=== PATIENT | female | born 1995 | race Caucasian/White ===

== ENCOUNTER 2016-11-20 15:14 | Emergency (ER) | payer OTHER ==
[~2016-11-20] VITALS: Ht 170.2 cm; Wt 65.3 kg
[2016-11-20 16:11] LABS: MEAN CORPUSCULAR VOLUME 90.8 fl (80.0-96.0); RED CELL DISTRIBUTION WIDTH 12.2 % (11.5-14.5); WHITE BLOOD COUNT 8.7 K/mm3 (4.0-10.0)
[2016-11-20 16:23] LABS: CONTROL LINE HCG INT CTR LINE PRESENT
[2016-11-20 16:39] LABS: ALBUMIN 4.3 GM/DL (3.2-5.2); ALBUMIN/GLOBULIN RATIO 1.19 (1.00-1.93); ALKALINE PHOSPHATASE 73 U/L (45-117); ALT/SGPT 21 U/L (12-78); ANION GAP 8 MEQ/L (8-16); AST/SGOT 15 U/L (15-37); BILIRUBIN,DIRECT 0.1 MG/DL (0.0-0.2); BILIRUBIN,TOTAL 0.4 MG/DL (0.2-1.0); BLOOD UREA NITROGEN 11 MG/DL (7-18); CALCIUM LEVEL 8.6 MG/DL (8.5-10.1); CARBON DIOXIDE LEVEL 26 MEQ/L (21-32); CHLORIDE LEVEL 106 MEQ/L (98-107); CREATININE FOR GFR 0.74 MG/DL (0.55-1.02); GLUCOSE, FASTING 71 MG/DL (70-105); POTASSIUM SERUM 3.8 MEQ/L (3.5-5.1); SODIUM LEVEL 140 MEQ/L (136-145); TOTAL PROTEIN 7.9 GM/DL (6.4-8.2)
[2016-11-20 18:02] LABS: METHADONE URINE NEGATIVE (NEGATIVE)
[2016-11-20 20:15] VITALS: BP 113/56
== END 2016-11-20 19:48 | disposition home or self-care (01) ==
LOC: M ED 16:53
DX: F43.20 Adjustment disorder, unspecified (principal)
CPT/HCPCS: 36415; 80048; 80076; 80306; 84443; 84703; 85027; 99284; G0480

== ENCOUNTER → 2016-12-05 | Outpatient (REF) | payer OTHER | LOC: M LAB REF 12:35 | PROVIDERS: ATTEND Nurse Practitioner Family | DX: Z11.3 Encounter for screening for infections with a predominantly sexual mode of transmission (principal) ==

== ENCOUNTER 2016-12-12 00:15 | Inpatient (IN) | payer MEDICAID, OTHER ==
[~2016-12-12] VITALS: Ht 170.2 cm; Wt 64.3 kg
[2016-12-12 01:15] LABS: MEAN CORPUSCULAR HEMOGLOBIN 30.2 pg (27.0-33.0); MEAN CORPUSCULAR HGB CONC 32.4 g/dl (32.0-36.5); RED CELL DISTRIBUTION WIDTH 12.2 % (11.5-14.5); WHITE BLOOD COUNT 8.7 K/mm3 (4.0-10.0)
[2016-12-12 01:33] LABS: CONTROL LINE HCG INT CTR LINE PRESENT
[2016-12-12 01:41] LABS: METHADONE URINE NEGATIVE (NEGATIVE)
[2016-12-12 01:49] LABS: ALBUMIN 4.3 GM/DL (3.2-5.2); ALBUMIN/GLOBULIN RATIO 1.23 (1.00-1.93); ALKALINE PHOSPHATASE 67 U/L (45-117); ALT/SGPT 21 U/L (12-78); ANION GAP 8 MEQ/L (8-16); AST/SGOT 26 U/L (15-37); BILIRUBIN,DIRECT < 0.1 MG/DL (0.0-0.2); BILIRUBIN,TOTAL 0.5 MG/DL (0.2-1.0); BLOOD UREA NITROGEN 16 MG/DL (7-18); CALCIUM LEVEL 8.9 MG/DL (8.5-10.1); CARBON DIOXIDE LEVEL 24 MEQ/L (21-32); CHLORIDE LEVEL 109 MEQ/L (98-107); CREATININE FOR GFR 0.73 MG/DL (0.55-1.02); GLUCOSE, FASTING 82 MG/DL (70-105); SODIUM LEVEL 141 MEQ/L (136-145); TOTAL PROTEIN 7.8 GM/DL (6.4-8.2)
[2016-12-12] MEDS ORDERED: MAALOX 30 ML SUSP *UDC PO PRN (12:00)
[2016-12-12] MEDS ORDERED: MOM 30ML SUSPENSION UDC PO PRN (12:00)
[2016-12-12 13:01] VITALS: BP 112/65
[2016-12-12] MEDS: NICOTINE 21MG/24HR 1 EA TRANSDERMAL TD SCH (14:21)
[2016-12-12 18:00] VITALS: BP 106/65
[2016-12-13 06:58] VITALS: BP 114/57
[2016-12-13] MEDS: NICOTINE 21MG/24HR 1 EA TRANSDERMAL TD SCH (08:44)
--- NOTE | 2016-12-13 09:58 | HPEPDOC ---
Medical History and Physical Date of Admission December 12, 2016 at 11:52 History and Physical PCP: [facility] ATTENDING: Dr. Dony Mayes HPI: 21yoF admitted to [facility] for [facility], being medically examined today. No acute medical complaints today. Denies any fevers, chills, weakness, fatigue, DUBOSE, CP, SOB, cough, palpitations, abdominal pain, N/V/D or changes in bowel or bladder habits. PMHx: H/O self mutilation Tobacco use PSHX: [place] teeth extraction SOCHX: Resides in: [place] Marital Status: Single Kids: None Employment: Sales Tobacco use: One half pack per day ETOH: 2-3 times per month 3-4 drinks Illicit Drugs: Denies IV Drug Use: Denies Tattoos done unprofessionally: Denies FAMHX: Mother: Alive, sarcoidosis, lupus, cervical cancer Father: Unknown Siblings: 2 brothers, 5 sisters Alive, history of ADHD, autism, Asperger's syndrome, scoliosis Children: None Unexpected deaths due to medical reasons: None. ROS: As noted in HPI, otherwise 11pt ROS of systems reviewed and remarkable only for LMP 12/12/16 PE: GEN: 21 yo F, appears stated age. Well-nourished, well developed. No acute distress. Alert and oriented x 3. Pleasant, interactive. HEENT: Normocephalic, atraumatic. Pupils are equal, round, and reactive to light. Extraocular movements are intact. No nystagmus appreciated. Sclera are nonicteric. Conjunctiva without injection. Nose midline. Nasal turbinates without bogginess. EACs both patent BL. TMs both visualized and [place] with good cone of light, no bulging or erythema. No facial asymmetry. Moist mucous membranes. Dentition fair. Pharynx pink and moist, no cobblestoning. Neck supple , trachea midline. No lymphadenopathy or thyromegaly appreciated. CHEST: Regular rate and rhythm, +S1, +S2 LUNGS: Clear to auscultation bilaterally. No wheezes, rales, or rhonchi. Breathing appears symmetric and easy. Patient is speaking in full sentences. No accessory muscle use. ABD: Round, soft, non-tender, non-distended. +Bowel sounds throughout. No rebound or guarding. No costovertebral angle tenderness. EXT: Pulses 2+ bilaterally dorsalis pedis and radial. No lower extremity edema appreciated. SKIN: [place], dry, warm. Capillary refill <2sec. No rashes. NEURO: Alert and oriented x 3. Cranial nerves III-XII are intact. No focal deficits appreciated. EKG: Pending A&P: 21yoF [facility] 1. Psych. Plan per Psychiatry. Obtain baseline EKG to assure the safety of psychiatric medications as they can prolong the QT interval. 2. Nicotine dependence. Patch available. 3. History of self-mutilation. No rashes, lesions or lacerations currently. 4. Follow up with PCP on discharge. 5. Staff member Maritza MITCHELL present throughout exam. Vital Signs Vital Signs Date Time Temp Pulse Resp B/P (MAP) Pulse Ox O2 Delivery O2 Flow Rate FiO2 12/13/16 06:58 98.7 70 16 114/57 (76) 12/12/16 13:01 99 Room [facility] Data Labs 24H Item Value Date Time White Blood Count 8.7 K/mm3 12/12/16100 Red Blood Count 4.28 M/mm3 12/12/16100 Hemoglobin 12.9 g/dl 12/12/16100 Hematocrit 39.8 % 12/12/16100 Mean Corpuscular Volume 93.0 fl 12/12/16100 Mean Corpuscular Hemoglobin 30.2 pg 12/12/16100 Mean Corpuscular Hemoglobin Concent 32.4 g/dl 12/12/16100 Red Cell Distribution Width 12.2 % 12/12/16100 Platelet Count 380 k/mm3 12/12/16100 Sodium Level 141 MEQ/L 12/12/16100 Potassium Level 4.0 MEQ/L 12/12/16100 Chloride Level 109 MEQ/L H 12/12/16100 Carbon Dioxide Level 24 MEQ/L 12/12/16100 Anion Gap 8 MEQ/L 12/12/16100 Blood Urea Nitrogen 16 MG/DL 12/12/16100 Creatinine 0.73 MG/DL 12/12/16100 Fasting Glucose 82 MG/DL 12/12/16100 Calcium Level 8.9 MG/DL 12/12/16100 Total Bilirubin 0.5 MG/DL 12/12/16100 Direct Bilirubin < 0.1 MG/DL 12/12/16100 Aspartate Amino Transf (AST/SGOT) 26 U/L 12/12/16100 Alanine Aminotransferase (ALT/SGPT) 21 U/L 12/12/16100 Alkaline Phosphatase 67 U/L 12/12/16100 Total Protein 7.8 GM/DL 12/12/16100 Albumin 4.3 GM/DL 12/12/16100 Albumin/Globulin Ratio 1.23 12/12/16100 Thyroid Stimulating Hormone (TSH) 2.760 uIU/ML 12/12/16100 Human Chorionic Gonadotropin, Qual NEGATIVE 12/12/16100 Salicylates Level 2.3 MG/DL L 12/12/16100 Urine Opiates Screen NEGATIVE 12/12/16100 Urine Methadone Screen NEGATIVE 12/12/16100 Acetaminophen Level < 2.0 UG/ML L 12/12/16100 Urine Barbiturates Screen NEGATIVE 12/12/16100 Urine Phencyclidine Screen NEGATIVE 12/12/16100 Urine Amphetamines Screen NEGATIVE 12/12/16100 Urine Benzodiazepines Screen NEGATIVE 12/12/16100 Urine Cocaine Metabolite Screen NEGATIVE 12/12/16100 Urine Cannabinoids Screen NEGATIVE 12/12/16100 Ethyl Alcohol Level < 0.003 % 12/12/16100 Home Medications No Active Prescriptions or Reported Meds Allergies Coded Allergies: Cefprozil (Verified Allergy, Unknown, 12/12/16) Janiya Jones December 13, 2016 09:58
[2016-12-13] MEDS: VENLAFAXINE **XR** 37.5 MG CAPSULE PO SCH (10:25)
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
[2016-12-13 18:00] VITALS: BP 105/63
[2016-12-14 06:47] VITALS: BP 99/57
[2016-12-14] MEDS: NICOTINE 21MG/24HR 1 EA TRANSDERMAL TD SCH (08:18)
[2016-12-14] MEDS: VENLAFAXINE **XR** 37.5 MG CAPSULE PO SCH (08:19)
[2016-12-14] MEDS ORDERED: VENLAFAXINE **XR** 37.5 MG CAPSULE PO ONE (09:00)
--- NOTE | 2016-12-14 15:42 | IPN ---
DATE: 12/14/2016 21-year-old female admitted to our unit for depression and suicidal ideation. SUBJECTIVE: "I am about the same." OBJECTIVE: No major changes since yesterday at initial evaluation. The patient reports insomnia, high anxiety, mood fluctuations and intermittent suicidal thoughts. The patient is motivated for treatment. Denies side effects from Effexor. No evidence of psychotic symptoms. MENTAL STATUS EXAMINATION: The patient is dressed in [facility]. The patient is cooperative. Has fair eye contact. Speech is slow and monotone. Mood is depressed and anxious. Affect is restricted. No evidence of delusions or hallucinations. The patient is fully oriented. Associations are intact. Thinking is logical. Thought content is appropriate. Short and long-term memory is fair. The patient is able to contract for safety during the interview, but admits intermittent suicidal thoughts. Judgment and insight are limited. ASSESSMENT: 1. Depression. 2. Suicidal ideation. PLAN: 1. Increase Effexor XR 75 mg by mouth in the morning. 2. Continue trazodone 50 mg by mouth at night as needed for insomnia. 3. Continue medication management, individual and group therapy.
[2016-12-14 18:00] VITALS: BP 120/71
[2016-12-14] MEDS: traZODone 50 MG TAB PO PRN (23:02)
[2016-12-15 06:51] VITALS: BP 90/53
[2016-12-15] MEDS: VENLAFAXINE **XR** 75MG CAPSULE PO SCH (08:30)
[2016-12-15] MEDS: NICOTINE 21MG/24HR 1 EA TRANSDERMAL TD SCH (08:31)
--- NOTE | 2016-12-15 14:33 | ECGEPIP ---
Stationary ECG Study [facility] Test Date: 2016-12-14 Pat Name: GIL CAMILO Department: Room: [place] [address] Gender: F Channel Process Plant Operator: : [id number] Requested By: Janiya Jones Order Number: [id number] Reading MD: Rocco Leon Measurements Intervals [place] Rate: 68 P: 70 [place]: 175 QRS: 61 QRSD: 94 T: 44 QT: 376 QTc: 402 Interpretive Statements Sinus arrhythmia Normal for age Electronically Signed On 12-15-2016 14:33:31 EDT by Rocco Leon
--- NOTE | 2016-12-15 15:07 | IPN ---
DATE: 12/15/2016 21-year-old female with depression and suicidal ideation. SUBJECTIVE: "I am feeling about the same". The patient is somewhat improved OBJECTIVE: The patient is somewhat improved from admission but continues very depressed, anxious with psychomotor retardation, sad face and expression and mood and emotional fluctuations. No evidence of psychotic symptoms. MENTAL STATUS EXAMINATION: The patient is dressed in [facility]. The patient is cooperative during the examination. Has poor eye contact. Speech is slow. Monotone. Mood is depressed and anxious. Affect is restricted and congruent with mood. No evidence of delusions or hallucinations. Short and long-term memory are fair. The patient is fully oriented. Associations are intact. Thinking is logical. Thought content is appropriate. The patient is able to contract for safety while here in the hospital. Insight and judgment is limited. ASSESSMENT: 1. Depression. 2. Suicidal ideation. PLAN: 1. Continue Effexor XR 75 mg by mouth every morning. 2. Continue trazodone 50 mg by mouth as needed for insomnia. 3. Continue medication management, individual and group therapy.
[2016-12-15 18:00] VITALS: BP 123/62
[2016-12-15] MEDS: traZODone 50 MG TAB PO PRN (22:40)
[2016-12-16 06:58] VITALS: BP 91/55
[2016-12-16] MEDS: VENLAFAXINE **XR** 75MG CAPSULE PO SCH (08:18)
[2016-12-16] MEDS: NICOTINE 21MG/24HR 1 EA TRANSDERMAL TD SCH (08:18)
[2016-12-16] MEDS: ACETAMINOPHEN TAB 650MG DOSE (2X325MG) PO PRN ×2 (08:19→17:05)
--- NOTE | 2016-12-16 16:12 | IPN ---
DATE: 12/16/2016 21-year-old female with depression and suicidal ideation. SUBJECTIVE: "I feel very weak". OBJECTIVE: No major changes from yesterday. Patient continues depressed with psychomotor retardation. Patient says have headaches and feels weak. Exploring any side effect from medication maybe caused by trazodone. MENTAL STATUS EXAMINATION: The patient is dressed in [facility]. The patient is cooperative. Has fair eye contact. Speech is slow and monotone. Mood is depressed and anxious. Affect is restricted. No evidence of delusions or hallucinations. Short and long-term memory are fair. The patient is fully oriented. Associations are intact. Thinking is logical. Thought content is appropriate. The patient continues to have intermittent suicidal thoughts but is able to contract for safety in our unit. Insight and judgment is limited. ASSESSMENT: 1. Depression. 2. Suicidal ideation. PLAN: 1. Continue Effexor XR 75 mg by mouth every morning. 2. Decrease trazodone to 25 mg by mouth at night plus 25 mg if needed for insomnia. 3. Continue medication management, individual and group therapy.
[2016-12-16 18:00] VITALS: BP 107/60
[2016-12-16 18:20] VITALS: BP 109/55
[2016-12-16] MEDS: traZODone 25MG PER 1/2 TABLET PO SCH (23:54)
[2016-12-17 06:35] VITALS: BP 129/90
[2016-12-17] MEDS: VENLAFAXINE **XR** 75MG CAPSULE PO SCH (08:40)
[2016-12-17] MEDS: NICOTINE 21MG/24HR 1 EA TRANSDERMAL TD SCH (08:41)
[2016-12-17] MEDS: ACETAMINOPHEN TAB 650MG DOSE (2X325MG) PO PRN (12:20)
[2016-12-17 18:00] VITALS: BP 110/64
[2016-12-18] MEDS: traZODone 25MG PER 1/2 TABLET PO SCH ×2 (00:17→23:00)
[2016-12-18 06:47] VITALS: BP 102/62
[2016-12-18] MEDS: VENLAFAXINE **XR** 75MG CAPSULE PO SCH (08:17)
[2016-12-18] MEDS: NICOTINE 21MG/24HR 1 EA TRANSDERMAL TD SCH (08:17)
[2016-12-18 18:00] VITALS: BP 118/66
[2016-12-19 06:00] VITALS: BP 106/58
[2016-12-19] MEDS: VENLAFAXINE **XR** 75MG CAPSULE PO SCH (08:07)
[2016-12-19] MEDS: NICOTINE 21MG/24HR 1 EA TRANSDERMAL TD SCH (08:08)
[2016-12-19] MEDS ORDERED: hydrOXYzine 25 MG TAB PO SCH (09:00)
[2016-12-19] MEDS ORDERED: hydrOXYzine 25 MG TAB PO PRN (11:15)
[2016-12-19 18:00] VITALS: BP 109/58
[2016-12-20] MEDS: traZODone 25MG PER 1/2 TABLET PO SCH (00:18)
[2016-12-20 06:08] VITALS: BP 121/69
[2016-12-20] MEDS: VENLAFAXINE **XR** 75MG CAPSULE PO SCH (08:39)
[2016-12-20] MEDS: NICOTINE 21MG/24HR 1 EA TRANSDERMAL TD SCH (08:39)
--- NOTE | 2016-12-20 16:40 | IPN ---
DATE: 12/20/2016 21-year-old female admitted for depression and suicidal ideation. SUBJECTIVE: "I am anxious." OBJECTIVE: Patient reports that she and her boyfriend have broken their relationship and also the information assistant is making them pay $1500 for their rent. They have to vacate the apartment. Patient also says that she does not know where she is going to be living. She hopes that she can get support from her family. Family meeting was held later and the family dynamics show that the patient and her mother do not get along well and they fight very frequently. She will not be able to live with her mother. However, the uncle that was also present offered her help but the uncle lives out of town so she will have to decide where she wants to live. Early in the morning, patient stated that although she is anxious because of the situation, she is not thinking about suicide any longer. She reports that at times thoughts of "life not being worth it to live" pop up in her mind but she was able to contract for safety. Patient is denying side effect from the medication. MENTAL STATUS EXAMINATION: Patient is dressed in [facility]. Patient is cooperative during exam, has fair eye contact. Her speech is normal in rate, volume, articulation, is coherent and is spontaneous. Mood is anxious and less depressed. Affect is congruent with mood. No evidence of delusions or hallucinations. Memory is fair. Patient is fully oriented. Associations are intact. Thinking is logical. Thought content is appropriate. Patient is denying suicidal ideation but is making statements such as at times "thoughts of not wanting to live pop up in my mind." Insight and judgment are fair. ASSESSMENT: 1. Depression. 2. Suicidal ideation. PLAN: 1. Continue with Effexor XR 75 mg by mouth every morning. 2. Continue with trazodone as needed for insomnia. 3. Continue medication management, individual and group therapy.
[2016-12-20 18:19] VITALS: BP 110/69
[2016-12-21] MEDS: traZODone 25MG PER 1/2 TABLET PO SCH (01:07)
[2016-12-21 06:17] VITALS: BP 115/59
[2016-12-21] MEDS: VENLAFAXINE **XR** 75MG CAPSULE PO SCH (08:18)
[2016-12-21] MEDS: NICOTINE 21MG/24HR 1 EA TRANSDERMAL TD SCH (09:00)
[2016-12-21] MEDS ORDERED: TRAZ25TA PO (10:39)
[2016-12-21] MEDS ORDERED: VENL75CA PO (10:39)
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
== END 2016-12-21 16:50 | disposition home or self-care (01) | DRG 881 ==
LOC: M ED 07:25 → M ED INP 11:52 → M PSY 12:50
PROVIDERS: ADMIT Psychiatry & Neurology Psychiatry; ATTEND Psychiatry & Neurology Psychiatry
DX: F32.9 Major depressive disorder, single episode, unspecified (principal); F17.210 Nicotine dependence, cigarettes, uncomplicated; Z62.811 Personal history of psychological abuse in childhood; Z91.5 Personal history of self-harm

== ENCOUNTER → 2017-04-03 | Outpatient (CLI) | payer OTHER ==
[~2017-04-03] MED LIST: TRAZ25TA PO; VENL75CA2 PO
[2017-04-03 19:38] LABS: BASO % 0.4 % (0.0-1.0); EOS # 0.1 K/mm3 (0.0-0.50); LARGE UNSTAINED CELL # 0.1 K/mm3 (0.0-0.4); LARGE UNSTAINED CELL % 1.7 % (0.0-4.0); LYMPH # 1.8 K/mm3 (1.5-6.5); MEAN CORPUSCULAR VOLUME 93.8 fl (80.0-96.0); MONO # 0.2 K/mm3 (0.0-0.8); MONO % 3.8 % (0.0-5.0); NEUTROPHILS # 3.9 K/mm3 (1.8-7.7); NEUTROPHILS % 63.1 % (36.0-66.0); PLATELET COUNT, AUTOMATED 368 k/mm3 (150-450); RED CELL DISTRIBUTION WIDTH 12.3 % (11.5-14.5); WHITE BLOOD COUNT 6.2 K/mm3 (4.0-10.0)
[2017-04-03 20:01] LABS: ALBUMIN 4.3 GM/DL (3.2-5.2); ALBUMIN/GLOBULIN RATIO 1.19 (1.00-1.93); ALKALINE PHOSPHATASE 57 U/L (45-117); ALT/SGPT 24 U/L (12-78); ANION GAP 9 MEQ/L (8-16); AST/SGOT 40 U/L (15-37); BILIRUBIN,TOTAL 0.8 MG/DL (0.2-1.0); BLOOD UREA NITROGEN 15 MG/DL (7-18); CALCIUM LEVEL 9.5 MG/DL (8.5-10.1); CARBON DIOXIDE LEVEL 24 MEQ/L (21-32); CHLORIDE LEVEL 108 MEQ/L (98-107); CREATININE FOR GFR 0.85 MG/DL (0.55-1.02); GLUCOSE, FASTING 83 MG/DL (70-105); SODIUM LEVEL 141 MEQ/L (136-145); TOTAL PROTEIN 7.9 GM/DL (6.4-8.2)
[2017-04-03 20:03] LABS: POTASSIUM SERUM 5.4 MEQ/L (3.5-5.1)
[2017-04-06 00:06] LABS: Lyme Disease IgG/IgM Antibodie <0.91 ISR (0.00-0.90); Lyme Disease IgM Ab Quantitati <0.80 index (0.00-0.79)
== END ==
LOC: M WUC 15:52
PROVIDERS: ATTEND Physician Assistant
DX: R10.30 Lower abdominal pain, unspecified (principal); R53.83 Other fatigue

== ENCOUNTER → 2017-05-16 | Outpatient (REF) | payer MEDICAID | LOC: M LAB REF 18:01 | PROVIDERS: ATTEND Physician Assistant | DX: N39.0 Urinary tract infection, site not specified (principal) ==

== ENCOUNTER 2017-06-20 16:43 | Emergency (ER) | payer MEDICAID, SELFPAY ==
[~2017-06-20] VITALS: Ht 170.2 cm; Wt 62.7 kg
[2017-06-20 21:09] VITALS: BP 113/66
== END 2017-06-20 21:17 | disposition home or self-care (01) ==
LOC: M ED 16:43
DX: N93.9 Abnormal uterine and vaginal bleeding, unspecified (principal); Z20.2 Contact with and (suspected) exposure to infections with a predominantly sexual mode of transmission; Z72.0 Tobacco use

== ENCOUNTER → 2017-10-24 | Outpatient (CLI) | payer OTHER ==
[2017-10-24 19:37] LABS: BASO % 0.4 % (0.0-1.0); EOS % 0.3 % (0.0-3.0); HEMATOCRIT 40.1 % (36.0-47.0); HEMOGLOBIN 13.3 g/dl (12.0-15.5); IMMATURE GRANULOCYTE % 0.4 % (0-3.0); LYMPH # 2.3 10^3/uL (1.5-6.5); LYMPH % 28.6 % (24.0-44.0); MEAN CORPUSCULAR HEMOGLOBIN 29.5 pg (27.0-33.0); MEAN CORPUSCULAR HGB CONC 33.2 g/dl (32.0-36.5); MEAN CORPUSCULAR VOLUME 88.9 fl (80.0-96.0); MONO # 0.4 10^3/uL (0.0-0.8); MONO % 4.9 % (0.0-5.0); NEUTROPHILS # 5.2 10^3/uL (1.8-7.7); NEUTROPHILS % 65.4 % (36.0-66.0); PLATELET COUNT, AUTOMATED 366 10^3/uL (150-450); RED BLOOD COUNT 4.51 10^6/uL (4.00-5.40); RED CELL DISTRIBUTION WIDTH 11.9 % (11.5-14.5); WHITE BLOOD COUNT 7.9 10^3/uL (4.0-10.0)
[2017-10-24 23:11] LABS: CHLAMYDIA DNA AMPLIFICATION NEGATIVE (NEGATIVE); GC DNA AMPLIFICATION NEGATIVE (NEGATIVE)
[2017-10-25 11:13] LABS: RUBELLA IgG QUALITATIVE IMMUNE (IMMUNE)
[2017-10-25 11:15] LABS: HBsAg Prenatal NEGATIVE (NEGATIVE)
[2017-10-25 11:41] LABS: HEPATITIS C VIRUS ABY INDEX 0.1 INDEX (<0.8)
[2017-10-25 11:42] LABS: HIV 1&2 SCREEN CENTAUR NEGATIVE (NEGATIVE)
== END ==
LOC: M LAB 15:56
DX: Z34.81 Encounter for supervision of other normal pregnancy, first trimester (principal); Z3A.09 9 weeks gestation of pregnancy
CPT/HCPCS: 86762

== ENCOUNTER 2017-11-10 00:23 | Emergency (ER) | payer OTHER ==
[2017-11-10 01:17] LABS: BASO % 0.4 % (0.0-1.0); EOS # 0.1 10^3/uL (0.0-0.50); EOS % 1.2 % (0.0-3.0); HEMATOCRIT 34.7 % (36.0-47.0); IMMATURE GRANULOCYTE % 0.5 % (0-3.0); LYMPH # 2.3 10^3/uL (1.5-6.5); MEAN CORPUSCULAR HEMOGLOBIN 30.4 pg (27.0-33.0); MEAN CORPUSCULAR HGB CONC 34.6 g/dl (32.0-36.5); MEAN CORPUSCULAR VOLUME 87.8 fl (80.0-96.0); MONO # 0.5 10^3/uL (0.0-0.8); MONO % 5.4 % (0.0-5.0); NEUTROPHILS # 5.4 10^3/uL (1.8-7.7); NEUTROPHILS % 64.5 % (36.0-66.0); PLATELET COUNT, AUTOMATED 328 10^3/uL (150-450); RED BLOOD COUNT 3.95 10^6/uL (4.00-5.40); RED CELL DISTRIBUTION WIDTH 11.9 % (11.5-14.5); WHITE BLOOD COUNT 8.4 10^3/uL (4.0-10.0)
[2017-11-10 01:49] LABS: HCG, SERUM QUANTITATIVE 50616 MIU/ML
== END 2017-11-10 02:37 | disposition home or self-care (01) ==
LOC: M ED 00:23
DX: O20.0 Threatened abortion (principal); Z3A.12 12 weeks gestation of pregnancy; O99.331 Smoking (tobacco) complicating pregnancy, first trimester; F17.200 Nicotine dependence, unspecified, uncomplicated; Z88.8 Allergy status to other drugs, medicaments and biological substances
CPT/HCPCS: 76801

== ENCOUNTER → 2017-11-15 | Outpatient (REF) | payer OTHER ==
[2017-11-15 21:59] LABS: APPEARANCE, URINE CLOUDY (CLEAR); BACTERIA, URINE AUTO 3+ (NEGATIVE); BILIRUBIN, URINE AUTO NEGATIVE (NEGATIVE); BLOOD, URINE BLOOD NEGATIVE (NEGATIVE); CALCIUM OXALATE CRYSTALS MODERATE; COLOR, URINE YELLOW (YELLOW); GLUCOSE, URINE (UA) AUTO NEGATIVE (NEGATIVE); KETONE, URINE AUTO NEGATIVE (NEGATIVE); LEUKOCYTE ESTERASE, URINE AUTO TRACE (NEGATIVE); MUCUS, URINE SMALL (NEGATIVE); NITRITE, URINE AUTO POSITIVE (NEGATIVE); PROTEIN, URINE AUTO NEGATIVE (NEGATIVE); RBC, URINE AUTO 2 /HPF (0-3); SQUAMOUS EPITHELIAL CELL UR AU 11 /HPF (0-6); UROBILINOGEN, URINE AUTO 0.2 mg/dL (0.0-2.0); WBC, URINE AUTO 10 /HPF (0-3)
== END ==
LOC: M LAB REF 18:16
DX: N39.0 Urinary tract infection, site not specified (principal)

== ENCOUNTER → 2017-12-26 | Outpatient (CLI) | payer OTHER | LOC: M RAD 16:29 | DX: Z34.82 Encounter for supervision of other normal pregnancy, second trimester (principal); Z36.89 Encounter for other specified antenatal screening; Z3A.18 18 weeks gestation of pregnancy | CPT/HCPCS: 76811 ==

== ENCOUNTER → 2019-03-07 | Outpatient (CLI) | payer OTHER ==
[~2019-03-07] MED LIST changes: +MACR100C43 PO; +PRENCHW PO; +TRAZ1TAB11 PO; -TRAZ25TA PO; +ZOFR4TAB16 PO
--- NOTE | 2019-03-07 19:34 | REP ---
REASON: Arm pain moving furniture. No direct trauma. FINDINGS: No acute fracture or destructive osseous lesion. Electronically Signed by Geoffrey Humphries DO 03/07/2019 07:41 P
--- NOTE | 2019-03-07 19:34 | REP ---
HISTORY: Arm pain moving furniture. No direct trauma. FINDINGS: No acute fracture or destructive osseous lesion. Electronically Signed by Geoffrey Humphries DO 03/07/2019 07:41 P
--- NOTE | 2019-03-07 19:34 | REP ---
REASON: Wrist pain moving furniture. No direct trauma. FINDINGS: No acute fracture or destructive osseous lesion. Electronically Signed by Geoffrey Humphries DO 03/07/2019 07:42 P
--- NOTE | 2019-03-07 19:34 | REP ---
HISTORY: Elbow pain moving furniture. No direct trauma. FINDINGS: There is no acute fracture, dislocation, subluxation, or joint effusion. Electronically Signed by Geoffrey Humphries DO 03/07/2019 07:42 P
== END ==
LOC: M LRY 18:27
PROVIDERS: ATTEND Nurse Practitioner Family
DX: M79.601 Pain in right arm (principal)

== ENCOUNTER → 2022-11-07 | Outpatient (REF) | payer OTHER ==
[2022-11-07 22:08] LABS: AMORPHOUS SEDIMENT SMALL (NEGATIVE); APPEARANCE, URINE CLOUDY (CLEAR); BACTERIA, URINE AUTO 1+ (NEGATIVE); BILIRUBIN, URINE AUTO NEGATIVE (NEGATIVE); BLOOD, URINE BLOOD 1+ (NEGATIVE); COLOR, URINE YELLOW (YELLOW); GLUCOSE, URINE (UA) AUTO NEGATIVE (NEGATIVE); KETONE, URINE AUTO NEGATIVE (NEGATIVE); LEUKOCYTE ESTERASE, URINE AUTO 3+ (NEGATIVE); MUCUS, URINE SMALL (NEGATIVE); NITRITE, URINE AUTO NEGATIVE (NEGATIVE); PROTEIN, URINE AUTO NEGATIVE (NEGATIVE); RBC, URINE AUTO 5 /HPF (0-3); SPECIFIC GRAVITY URINE AUTO 1.004 (1.002-1.035); SQUAMOUS EPITHELIAL CELL UR AU 31 /HPF (0-6); UROBILINOGEN, URINE AUTO 0.2 mg/dL (0.0-2.0); WBC, URINE AUTO 19 /HPF (0-3)
== END ==
LOC: M LAB REF 21:49
PROVIDERS: ATTEND Physician Assistant Medical
DX: N39.0 Urinary tract infection, site not specified (principal)

== ENCOUNTER → 2022-11-14 | Outpatient (REF) | LOC: M EMP 08:22 | PROVIDERS: ATTEND Family Medicine | DX: Z11.52 Encounter for screening for COVID-19 (principal) ==

== ENCOUNTER → 2022-11-21 | Outpatient (REF) | LOC: M EMP 07:57 | PROVIDERS: ATTEND Family Medicine | DX: Z11.52 Encounter for screening for COVID-19 (principal) ==

== ENCOUNTER → 2022-11-28 | Outpatient (REF) | LOC: M EMP 07:47 | PROVIDERS: ATTEND Family Medicine | DX: Z11.52 Encounter for screening for COVID-19 (principal) ==

== ENCOUNTER → 2022-12-05 | Outpatient (REF) | LOC: M EMP 10:17 | PROVIDERS: ATTEND Family Medicine | DX: Z11.52 Encounter for screening for COVID-19 (principal) ==

== ENCOUNTER → 2022-12-12 | Outpatient (REF) | LOC: M EMP 09:46 | PROVIDERS: ATTEND Family Medicine | DX: Z11.52 Encounter for screening for COVID-19 (principal) ==

== ENCOUNTER → 2022-12-20 | Outpatient (REF) | LOC: M EMP 11:06 | PROVIDERS: ATTEND Family Medicine | DX: Z11.52 Encounter for screening for COVID-19 (principal) ==

== ENCOUNTER → 2022-12-26 | Outpatient (REF) | LOC: M EMP 09:50 | PROVIDERS: ATTEND Family Medicine | DX: Z11.52 Encounter for screening for COVID-19 (principal) ==

== ENCOUNTER → 2023-07-07 | Outpatient (REF) | LOC: M EMP 11:59 | PROVIDERS: ATTEND Family Medicine | DX: Z11.52 Encounter for screening for COVID-19 (principal) ==

== ENCOUNTER → 2023-08-07 | Outpatient (REF) | LOC: M EMP 09:18 | PROVIDERS: ATTEND Family Medicine | DX: Z11.52 Encounter for screening for COVID-19 (principal) ==

== ENCOUNTER → 2024-01-01 | Outpatient (REF) | payer OTHER | LOC: M PLALAB 14:30 | PROVIDERS: ATTEND Advanced Practice Midwife | DX: Z34.91 Encounter for supervision of normal pregnancy, unspecified, first trimester (principal) ==

== ENCOUNTER → 2024-01-08 | Outpatient (CLI) | payer OTHER ==
[2024-01-08 14:21] LABS: HEMATOCRIT 36.6 % (36.0-47.0); HEMOGLOBIN 12.3 g/dl (12.0-15.5); MEAN CORPUSCULAR HEMOGLOBIN 29.9 pg (27.0-33.0); MEAN CORPUSCULAR HGB CONC 33.6 g/dl (32.0-36.5); MEAN CORPUSCULAR VOLUME 88.8 fl (80.0-96.0); PLATELET COUNT, AUTOMATED 313 10^3/uL (150-450); RED BLOOD COUNT 4.12 10^6/uL (4.00-5.40); WHITE BLOOD COUNT 7.9 10^3/uL (4.0-10.0)
[2024-01-08 15:08] LABS: HIV 1&2 SCREEN NEGATIVE (NEGATIVE)
[2024-01-08 15:16] LABS: HEPATITIS C VIRUS ABY INDEX < 0.02 INDEX (<0.8)
[2024-01-08 15:32] LABS: GC DNA AMPLIFICATION NEGATIVE (NEGATIVE)
== END ==
LOC: M LAB 12:06
PROVIDERS: ATTEND Advanced Practice Midwife
DX: Z34.91 Encounter for supervision of normal pregnancy, unspecified, first trimester (principal)

== ENCOUNTER → 2024-02-28 | Outpatient (CLI) | payer OTHER | LOC: M WHC 09:33 | PROVIDERS: ATTEND Obstetrics & Gynecology | DX: Z34.80 Encounter for supervision of other normal pregnancy, unspecified trimester (principal) ==

== ENCOUNTER → 2024-04-17 | Outpatient (CLI) | payer OTHER | LOC: M RAD 15:40 | PROVIDERS: ATTEND Nurse Practitioner Women's Health | DX: Z34.82 Encounter for supervision of other normal pregnancy, second trimester (principal) ==

== ENCOUNTER → 2024-06-05 | Outpatient (CLI) | payer OTHER | LOC: M WHC 11:18 | PROVIDERS: ATTEND Obstetrics & Gynecology Obstetrics | DX: Z34.83 Encounter for supervision of other normal pregnancy, third trimester (principal) ==